=== PATIENT | male | born 1965 | race Two or more races ===

== ENCOUNTER 2020-01-27 06:40 | Day surgery (SDC) | payer OTHER ==
[~2020-01-27] VITALS: Ht 172.7 cm; Wt 85.5 kg
[~2020-01-27 06:40] MED LIST: ACET500T68 PO; ACETAMINOPHEN 500 MG TABLET PO PRN; NAPR-514 PO
[2020-01-27] MEDS ORDERED: ONDANSETRON PF 4 MG/2 ML VIAL. IV PRN (07:00)
[2020-01-27] MEDS ORDERED: IV RINGERS,LACTATED 1000ML 1,000 ML IV SCH (07:00)
[2020-01-27] MEDS ORDERED: MORPHINE SULFATE 2 MG/ML VIAL. IV PRN (07:00)
[2020-01-27] MEDS ORDERED: fentaNYL PF VIAL 100 MCG/2 ML VIAL IV PRN ×2 (07:00)
[2020-01-27] MEDS ORDERED: PROCHLORPERAZINE 10 MG/2 ML VIAL. IV PRN (07:00)
[2020-01-27] MEDS ORDERED: LIDOCAINE 1% PF 2 ML VIAL. ID PRN (07:00)
[2020-01-27] MEDS ORDERED: HYDROmorphone 2 MG/ML VIAL IV PRN (07:00)
[2020-01-27] MEDS ORDERED: MINERAL OIL for SURGERY 10 ML VIAL. MC ONE (07:01)
[2020-01-27] MEDS ORDERED: BUPIVACAINE-EPI 0.25%-1:200000 MPF 30 ML VIAL. ONE (07:01)
[2020-01-27] MEDS ORDERED: NEOSTIGMINE METHYLSULFATE 5 MG/5 ML SYRINGE. ONE (08:00)
[2020-01-27] MEDS ORDERED: fentaNYL PF VIAL 100 MCG/2 ML VIAL ONE (08:00)
[2020-01-27] MEDS ORDERED: SUCCINYLCHOLINE 200 MG/10 ML VIAL. ONE (08:00)
[2020-01-27] MEDS ORDERED: ROCURONIUM 50 MG/5 ML VIAL. ONE (08:00)
[2020-01-27] MEDS ORDERED: ONDANSETRON PF 4 MG/2 ML VIAL. ONE (08:00)
[2020-01-27] MEDS ORDERED: ceFAZolin 2GM PREMIX 2 GM/50 ML BAG IV ONE (08:00)
[2020-01-27] MEDS ORDERED: DEXAMETHASONE SOD PHOS 4 MG/ML VIAL ONE (08:00)
[2020-01-27] MEDS ORDERED: LIDOCAINE 1% PF 5 ML VIAL. ONE (08:00)
[2020-01-27] MEDS ORDERED: PROPOFOL 10 MG/ML (20ML) VIAL. IV ONE (08:00)
[2020-01-27] MEDS ORDERED: GLYCOPYRROLATE 1 MG/5 ML VIAL. ONE (08:01)
--- NOTE | 2020-01-27 08:16 | PDOC1 ---
History and Physical Date of Admission Date of Admission DATE: 01/27/20 TIME: 08:14 Identification/Chief Complaint Chief Complaint Right groin pain Source Source: Patient History of Present Illness History of Present Illness 54-year-old male with complaints of a painful right groin bulge present approximately 6 months. Occasionally has pain in the area has been getting larger since he first noticed it. He had a left inguinal hernia repair approximately 15 years ago Past Medical History Cardiovascular: No pertinent hx Pulmonary: No pertinent hx GI: No pertinent hx Heme/Onc: No pertinent hx Hepatobiliary: No pertinent hx Psych: No pertinent hx Rheumatologic: No pertinent hx ENT: No pertinent hx Renal/: No pertinent hx Endocrine: No pertinent hx Dermatology: No pertinent hx Past Surgical History Past Surgical History: Hernia Repair Family History Family History: No Significant Social History Smoke: No ALCOHOL: none Drugs: None Current Medications Current Medications Current Medications Ondansetron HCl (Zofran) 4 mg PRN Q6HRS PRN IV NAUSEA/VOMITING; Start 01/27/20 at 07:00; Stop 01/28/20 at 06:59 Fentanyl Citrate (Fentanyl 2ml Vial) 25 mcg PRN Q5MIN PRN IV MILD PAIN 1-3; Start 01/27/20 at 07:00; Stop 01/28/20 at 06:59 Fentanyl Citrate (Fentanyl 2ml Vial) 50 mcg PRN Q5MIN PRN IV MODERATE TO SEVERE PAIN; Start 01/27/20 at 07:00; Stop 01/28/20 at 06:59 Morphine Sulfate (Morphine Sulfate) 1 mg PRN Q10MIN PRN IV SEVERE PAIN 7-10; Start 01/27/20 at 07:00; Stop 01/28/20 at 06:59 Ringer's Solution 1,000 ml @ 30 mls/hr Q24H IV Last administered on 01/27/20at 07:14; Start 01/27/20 at 07:00; Stop 01/27/20 at 18:59 Lidocaine HCl (Xylocaine-Mpf 1% 2ml Vial) 2 ml PRN 1X PRN ID PRIOR TO IV START; Start 01/27/20 at 07:00; Stop 01/28/20 at 06:59 Hydromorphone HCl (Dilaudid) 0.5 mg PRN Q10MIN PRN IV SEV PAIN, Second choice; Start 01/27/20 at 07:00; Stop 01/28/20 at 06:59 Prochlorperazine Edisylate (Compazine) 5 mg PACU PRN PRN IV NAUSEA, MRX1; Start 01/27/20 at 07:00; Stop 01/28/20 at 06:59 Cefazolin Sodium/ Dextrose 50 ml @ 100 mls/hr 1X PREOP PRN IV PRIOR TO PROCEDURE; Start 01/27/20 at 06:00; Stop 01/27/20 at 18:00 Acetaminophen (Tylenol) 1,000 mg 1X PRN PRN PO PRIOR TO PROCEDURE Last administ ered on 01/27/20at 07:15; Start 01/27/20 at 06:00; Stop 01/27/20 at 15:00 Mineral Oil (Muri-Lube) 10 ml STK-MED ONCE MC ; Start 01/27/20 at 07:01; Stop 01/27/20 at 07:01; Status DC Bupivacaine HCl/ Epinephrine Bitart (Sensorcaine-Epi 0.25%-1:397195 Mpf) 30 ml S TK-MED ONCE .ROUTE ; Start 01/27/20 at 07:01; Stop 01/27/20 at 07:01; Status DC Propofol (Diprivan) 200 mg STK-MED ONCE IV ; Start 01/27/20 at 08:00; Stop 01/27/20 at 08:00; Status DC Lidocaine HCl (Xylocaine-Mpf 1% 5ml Vial) 5 ml STK-MED ONCE .ROUTE ; Start 01/27/20 at 08:00; Stop 01/27/20 at 08:00; Status DC Ondansetron HCl (Zofran) 4 mg STK-MED ONCE .ROUTE ; Start 01/27/20 at 08:00; Stop 01/27/20 at 08:00; Status DC Dexamethasone Sodium Phosphate (Decadron) 4 mg STK-MED ONCE .ROUTE ; Start 01/27/20 at 08:00; Stop 01/27/20 at 08:00; Status DC Succinylcholine Chloride (Anectine) 200 mg STK-MED ONCE .ROUTE ; Start 01/27/20 at 08:00; Stop 01/27/20 at 08:00; Status DC Neostigmine [place] (Neostigmine Methylsulfate) 5 mg STK-MED ONCE .ROUTE ; Start 01/27/20 at 08:00; Stop 01/27/20 at 08:00; Status DC Rocuronium [place] (Zemuron) 50 mg STK-MED ONCE .ROUTE ; Start 01/27/20 at 08:00; Stop 01/27/20 at 08:00; Status DC Fentanyl Citrate (Fentanyl 2ml Vial) 100 mcg STK-MED ONCE .ROUTE ; Start 01/27/20 at 08:00; Stop 01/27/20 at 08:01; Status DC Glycopyrrolate (Robinul) 1 mg STK-MED ONCE .ROUTE ; Start 01/27/20 at 08:01; Stop 01/27/20 at 08:01; Status DC Active Scripts Active Reported Acetaminophen 500 Mg Tablet 1,000 Mg PO PRN Q6HRS PRN Naproxen 500 Mg Tablet 500 Mg PO PRN Q12HR PRN Allergies Allergies: Coded Allergies: No Known Drug Allergies (Unverified , 01/27/20) ROS Gastrointestinal: Yes Abdominal Pain (Right groin) Physical Exam General: Alert, Oriented X3, Cooperative, No acute distress HEENT: Atraumatic Lungs: Clear to auscultation, Normal air movement Heart: RRR, no murmurs Abdomen: Normal bowel sounds, Soft, No tenderness Male Genitals Exam: hernia (Right inguinal hernia mildly tender to palpation) Rectal Exam: not examined Extremities: No edema Skin: No significant lesion Neuro: Normal speech Vitals Vitals Vital Signs Date Time Temp Pulse Resp B/P (MAP) Pulse Ox O2 Delivery O2 Flow Rate FiO2 01/27/20 07:08 97.7 50 18 173/100 97 Room Air 97.7 VTE Prophylaxis Ordered VTE Prophylaxis Devices: Yes VTE Pharmacological Prophylaxi: Contraindicated Assessment/Plan Assessment/Plan Right inguinal hernia plan robotic assisted laparoscopic right inguinal hernia repair with mesh Justicifation of Admission Dx: Justifications for Admission: Justification of Admission Dx: N/A NILAM ALVARADO MD Jan 27, 2020 08:16
[2020-01-27] MEDS ORDERED: PHENYLEPHRINE in 0.9% NACL PF 1 MG/10 ML SYRINGE. IV ONE (08:38)
[2020-01-27] MEDS ORDERED: SEVOFLURANE > 120 MINUTES. IH ONE (08:58)
--- NOTE | 2020-01-27 09:56 | PDOC4 ---
Operative Note Operative Note Date 01/27/2020 at 953 Preoperative diagnosis: Right inguinal hernia Postoperative diagnosis: Same Procedure: Robotic assisted laparoscopic right inguinal hernia repair with mesh Surgeon: Rip Specimen: None Dictation: 54-year-old male with incarcerated right inguinal hernia. Procedure of right inguinal hernia repair with mesh via robotic assisted laparoscopic was explained to the patient detail was benefits were also discussed including bleeding infection injury to intra-abdominal contents possibly necessitating further open operations. Alternatives to this procedure also discussed with the patient who seemed to understand and gave both verbal and written consent to have procedure performed. Patient was taken to the operating room placed in the supine position general anesthesia was initiated once patient was sleeping intubated is placed in low lithotomy position and his abdomen was prepped and draped in usual sterile fashion using ChloraPrep. An area just above the umbilicus was injected quarter percent Marcaine with epinephrine incision was made 11 blade scalpel and a varies needle was placed within the abdomen creating pneumoperitoneum. Once this complete a 8 mm da Ellis camera port was placed and the camera was placed within the abdomen which was inspected was noted that there is a large right inguinal hernia with incarcerated colon and small bowel a 8 mm da Ellis port was placed in the right midabdomen and one in the left midabdomen. The da Ellis robot was brought in and docked all port sites surgeon went to the robotic console using a grasper and Endo Jodi scissors the hernia contents were reduced a incision was made in the peritoneum and a flap was propagated inferiorly reducing the hernia sac. Bard 3D max mesh for the right side was placed over the hernia defect and the peritoneum was then closed with a running 2 OV lock absorbable suture. Once this was complete the da Ellis robot was undocked from all port sites ports were all removed pneumoperitoneum reduced all port sites were closed for subcuticular Monocryl Mastisol Steri-Strips and island dressings were applied. The scrotum of the patient was examined gas was evacuated from the scrotum with pressure and it was noted that the testicle was within the right scrotum. Patient was awakened and extubated in the operating room taken to recovery in stable condition all sponge instrument needle counts listed as correct estimated blood loss 10 mL NILAM ALVARADO MD Jan 27, 2020 09:56
--- NOTE | 2020-01-27 09:58 | DISCH ---
DISCHARGE INSTRUCTIONS Condition on Discharge Condition on Discharge: Stable Activity After Discharge Activity Instructions for Disc: Avoid exertion Other activity instructions: No lifting more than 20 pounds for 2 weeks Diet after Discharge Diet after Discharge: Regular Wound Incision Care Other wound/incision instructi: May shower in 24 hours Contacting the after DC Call your doctor for: If your condition worsens Follow-Up Follow up with: Dr. Alvarado in 2 weeks NILAM ALVARADO MD Jan 27, 2020 09:58
[2020-01-27 10:35] VITALS: BP 122/70
[2020-01-27] MEDS ORDERED: oxyCODONE/APAP 5/325 1 TAB TABLET PO ONE (10:45)
== END 2020-01-27 11:00 | disposition home or self-care (01) ==
LOC: SURG 06:40 → EEVIPCON 08:30 → SURG 11:00
PROVIDERS: ATTEND Surgery
DX: K40.90 Unilateral inguinal hernia, without obstruction or gangrene, not specified as recurrent (principal)
CPT/HCPCS: 49650; A7015; C1781; J0330; J0690; J1100; J2370; J2405; J2704; J2710; J3010; J3490; J7120; S2900